=== PATIENT | male | born 1990 ===

== ENCOUNTER 2020-04-21 10:28 | Emergency (ER) | payer BC, OTHER ==
--- NOTE | 2020-04-21 11:24 | CR ---
Chest: 2 views of the chest were obtained. Comparison: No previous study. Small portion of the lateral costophrenic angles were not included on the exam. Lungs otherwise are clear. Heart size and mediastinum are normal. Bony structures appear within normal limits for the patient's age. Impression: 1. Small portion of the lateral costophrenic angles were not included. 2. Nothing acute is otherwise seen on 2 view chest x-ray. Diagnostic code #2
--- NOTE | 2020-04-21 11:31 | EDM.PDOC ---
ED HPI GENERAL MEDICAL PROBLEM - General Chief Complaint: Chest Pain Stated Complaint: CHEST TIGHTNESS/HIGH BP Time Seen by Provider: 04/21/20 10:36 Source of Information: Reports: Patient History Limitations: Reports: No Limitations - History of Present Illness INITIAL COMMENTS - FREE TEXT/NARRATIVE: The patient presents with chest pressure. This has been going on for the past 2 to 3 weeks. It usually comes on at night and he describes it as a pressure. It comes and goes but the past 2 nights it happened. He has no shortness of breath with it. He has no fever, chills, cough, congestion, runny nose, abdominal pain, nausea or vomiting. He has no history of heart problems. He has no history of hypertension but the past few times his blood pressure has been elevated. He has no history of hypercholesterolemia or diabetes. He does not smoke. He says he may have been burping some thing up. He says at night it feel like his heart is pounding hard. Onset: Gradual Duration: Week(s): Location: Reports: Chest Quality: Reports: Pressure Severity: Mild Improves with: Reports: None Worsens with: Reports: None Associated Symptoms: Reports: Chest Pain. Denies: Cough, Fever/Chills, Headaches, Nausea/Vomiting, Shortness of Breath Chest Pain Score (Numeric/FACES): 2 - Related Data Allergies Allergy/AdvReac Type Severity Reaction Status Date / Time No Known Allergies Allergy Verified 04/21/20 10:37 Home Meds: Home Meds . [No Known Home Meds] 04/21/20 [History] Past Medical History - Past Surgical History HEENT Surgical History: Reports: Tonsillectomy GI Surgical History: Reports: Appendectomy Social & Family History - Family History Family Medical History: No Pertinent Family History - Tobacco Use Tobacco Use Status *Q: Never Tobacco User Second Hand Smoke Exposure: No - Caffeine Use Caffeine Use: Reports: Other - Recreational Drug Use Recreational Drug Use: No ED ROS GENERAL - Review of Systems Review Of Systems: See Below Constitutional: Reports: No Symptoms HEENT: Reports: No Symptoms Respiratory: Reports: No Symptoms Cardiovascular: Reports: Chest Pain Endocrine: Reports: No Symptoms GI/Abdominal: Reports: No Symptoms : Reports: No Symptoms Musculoskeletal: Reports: No Symptoms ED EXAM, GENERAL - Physical Exam Exam: See Below Exam Limited By: No Limitations General Appearance: Alert, No Apparent Distress Ears: Normal External Exam Nose: Normal Inspection Head: Atraumatic, Normocephalic Neck: Normal Inspection Respiratory/Chest: No Respiratory Distress, Lungs Clear, Normal Breath Sounds Cardiovascular: Regular Rate, Rhythm, No Edema, No Murmur GI/Abdominal: Soft, Non-Tender, No Organomegaly, No Mass Extremities: Normal Inspection Neurological: Alert, Oriented, No Motor/Sensory Deficits #1 Interpretation EKG Date: 04/21/20 Time: 10:40 Rhythm: NSR Rate (Beats/Min): 75 Mason: Normal P-Wave: Present QRS: Normal ST-T: Normal QT: Normal Course - Vital Signs Last Recorded V/S: Last Vital Signs Temp 97.2 F 04/21/20 10:33 Pulse 88 04/21/20 10:33 Resp 18 04/21/20 10:33 BP 166/109 H 04/21/20 10:33 Pulse Ox 99 04/21/20 10:33 - Orders/Labs/Meds Orders: Active Orders 24 hr Category Date Time Status Cardiac Monitoring [RC] . DIRECTED Care 04/21/20 10:50 Active EKG Documentation Completion [RC] ASDIRECTED Care 04/21/20 10:44 Active Holter Monitor 48 Hours [RC] .PRN Care 04/21/20 11:54 Ordered EKG 12 Lead [EK] Stat Ther 04/21/20 10:44 Ordered Labs: Laboratory Tests 04/21/20 04/21/20 Range/Units 11:00 11:00 WBC 6.64 (4.23-9.07) K/mm3 RBC 5.83 (4.63-6.08) M/mm3 Hgb 17.6 H (13.7-17.5) gm/dl Hct 51.4 H (40.1-51.0) % MCV 88.2 (79.0-92.2) fl MCH 30.2 (25.7-32.2) pg MCHC 34.2 (32.2-35.5) g/dl RDW Std Deviation 43.1 (35.1-43.9) fL Plt Count 231 (163-337) K/mm3 MPV 10.3 (9.4-12.3) fl Neut % (Auto) 72.2 H (34.0-67.9) % Lymph % (Auto) 16.9 L (21.8-53.1) % [place] % (Auto) 9.2 (5.3-12.2) % Eos % (Auto) 0.9 (0.8-7.0) Baso % (Auto) 0.5 (0.1-1.2) % Neut # (Auto) 4.80 (1.78-5.38) K/mm3 Lymph # (Auto) 1.12 L (1.32-3.57) K/mm3 [place] # (Auto) 0.61 (0.30-0.82) K/mm3 Eos # (Auto) 0.06 (0.04-0.54) K/mm3 Baso # (Auto) 0.03 (0.01-0.08) K/mm3 Sodium 142 (136-145) mEq/L Potassium 3.6 (3.5-5.1) mEq/L Chloride 104 (98-107) mEq/L Carbon Dioxide 28 (21-32) mEq/L Anion Gap 13.6 (5-15) BUN 11 (7-18) mg/dL Creatinine 1.1 (0.7-1.3) mg/dL Est Cr Clr Drug Dosing 128.96 mL/min Estimated GFR (MDRD) > 60 (>60) mL/min BUN/Creatinine Ratio 10.0 L (14-18) Glucose 114 H (74-106) mg/dL Calcium 9.0 (8.5-10.1) mg/dL Total Bilirubin 0.5 (0.2-1.0) mg/dL AST 39 H (15-37) U/L ALT 60 (16-63) U/L Alkaline Phosphatase 78 (46-116) U/L Troponin I < 0.017 (0.00-0.056) ng/mL Total Protein 7.6 (6.4-8.2) g/dl Albumin 4.3 (3.4-5.0) g/dl Globulin 3.3 gm/dL Albumin/Globulin Ratio 1.3 (1-2) - Re-Assessments/Exams Free Text/Narrative Re-Assessment/Exam: 04/21/20 11:32 I ordered an EKG, CXR and labs. His EKG shows a NSR with no acute changes. His CXR shows nothing acute. 04/21/20 11:55 His CBC and CMP look good. His troponin is negative. I will have him take pepcid or prilosec daily for 2 weeks and I have also ordered a hotler monitro for a couple days to see if we can catch the pounding heart he is feeling. His blood pressure is better now. He will need to have that rechecked. I will have him follow up with Dr Henriquez in our clinic. Departure - Departure Time of Disposition: 12:00 Disposition: Home, Self-Care 01 Condition: Good Clinical Impression: Atypical chest pain Referrals: PCP,None [Primary Care Provider] - Olive Henriquez MD [Physician] - 1 Week Forms: ED Department Discharge Additional Instructions: Wear the holter monitor for 2 days. Take either pepcid 20mg daily or prilosec OTC 20mg daily for 2 weeks. Please return if you are worse. Follow up with Dr Henriquez within a week. Sepsis Event Note (ED) - Evaluation Sepsis Screening Result: No Definite Risk - Focused Exam Vital Signs: Vital Signs Temp Pulse Resp BP Pulse Ox 04/21/20 10:33 97.2 F 88 18 166/109 H 99 - My Orders Last 24 Hours: My Active Orders 04/21/20 10:44 EKG Documentation Completion [RC] ASDIRECTED EKG 12 Lead [EK] Stat 04/21/20 10:50 Cardiac Monitoring [RC] . DIRECTED 04/21/20 11:54 Holter Monitor 48 Hours [RC] .PRN - Assessment/Plan Last 24 Hours: My Active Orders 04/21/20 10:44 EKG Documentation Completion [RC] ASDIRECTED EKG 12 Lead [EK] Stat 04/21/20 10:50 Cardiac Monitoring [RC] . DIRECTED 04/21/20 11:54 Holter Monitor 48 Hours [RC] .PRN
== END 2020-04-21 12:15 | disposition home or self-care (01) ==
LOC: JD.ED 10:28
DX: R07.89 Other chest pain (principal)
CPT/HCPCS: 36415; 71046; 71046-26; 80053; 84484; 85025; 93005; 93010; 93225; 93226; 99284; 99285-25